=== PATIENT | female | born 1965 | race Caucasian/White ===

== ENCOUNTER 2016-05-01 12:29 | Observation (INO) | payer BC, OTHER ==
--- NOTE | 2016-05-01 13:06 | ERNOTE ---
Abdominal HPI - General Chief Complaint: Abdominal Pain Time Seen by Provider: 05/01/16 12:49 Source: patient Exam Limitations: no limitations - Immun/Allergies/Home Medications Immunizatons: IMMUNIZATION HX History of Influenza Vaccine Yes Allergies/Adverse Reactions: Allergies amoxicillin trihydrate [From Augmentin] Allergy (Verified 05/01/16 12:38) potassium clavulanate [From Augmentin] Allergy (Verified 05/01/16 12:38) Sulfa (Sulfonamide Antibiotics) Allergy (Verified 05/01/16 12:38) Home Medications: HOME MEDICATIONS Cetirizine HCl [Zyrtec] 10 mg PO DAILY 05/01/16 [Last Taken Unknown] Ethinyl Estradiol/Drospirenone [Drospirenone-Ee 3-0.02 mg Tab] 1 each PO DAILY 05/01/16 [Last Taken Unknown] Omeprazole [Prilosec] 20 mg PO DAILY 05/01/16 [Last Taken Unknown] - History of Present Illness Narrative: Patient has had right lower quadrant for about five days. The pain was mild at first but has increased in intensity over the last two day to where is hard for her to get comfortable and she has pain with cough, deep breath and bumps in the road, also started with a low grade temperature, denies any nausea and vomiting, had breakfast around 08:00 Date (Duration): 04/28/16 Timing: constant, getting worse Quality: moderate, aching Activities at Onset: none Modifying Factors - (Improves): Present: other - standing Modifying Factors - (Worsens): Present: breathing, coughing, movement, other - bending over Associated Symptoms: Absent: chest pain, diarrhea-gross blood, diarrhea-mucous, fever/chills, heartburn, nausea, vomiting, shortness of breath Prior Abdominal Problems: Present: none Prior Treatment: Absent: recently seen, currently on antibiotics Review of Systems - Review of Systems Constitutional: Present: fever, chills ENT: Absent: nose congestion, sore throat Respiratory: Absent: shortness of breath Cardiology: Absent: chest pain Gastrointestinal/Abdominal: Present: See HPI, abdominal pain. Absent: nausea Neurological: Absent: headache - Patient's Past Medical History Patient History - Medical: GERD Patient History - Cardiac/Respiratory: No pertinent hx Patient History - Cancer: No Hx of Cancer Patient History - Surgical Procedures: Other Patient History - Other: None - Family History Father Family History - Medical: Other - pancreatic cancer - Social History Living Situations: home Psych History: No pertinent hx Alcohol Use: none Drug Use: none - Immunizations History of Influenza Vaccine: Yes Physical Exam - Physical Exam General Appearance: Present: wd/wn, alert, no apparent distress Respiratory: Present: no respiratory distress, normal breath sounds, no accessory muscle use, lungs clear Cardiovascular/Chest: Present: regular rate, rhythm, no murmur Gastrointestinal/Abdominal: Present: normal bowel sounds, nondistended, soft, tenderness - right lower quadrant, guarding, McBurney sign, Obturator sign, Psoas sign Extremity Exam: Present: no edema Neurological Exam: Present: alert, oriented, normal mood/affect Skin Exam: Present: normal color, warm/dry ED Progress - Results and Orders Patient's Lab Results:: I have reviewed the patient's lab results. - Vital Signs Patient's Vital Signs:: I have reviewed the patient's vital signs. Vital Signs: Vital Signs 05/01/16 12:31 Temperature 38.2 C H Pulse Rate 101 H Respiratory 12 Rate Blood Pressure 141/92 O2 Sat by Pulse 98 Oximetry - CT/Ultrasound CT/Ultrasound Narrative: CT abdomen:pericecal inflammation and lymphnodes, most likely contained perforated appendicitis - Progress/Reassessment Chief Complaint: Abdominal Pain Progress Note-Subjective: 05/01/16 13:57 tolerating contrast, still does not want any pain meds discussed lab results 05/01/16 15:[address] Vázquez, will see patient in ER 05/01/16 15:50 discussed results with patient and , denies need for pain meds Departure - Departure Clinical Impression: Acute appendicitis Qualifiers: Acute appendicitis type: with localized peritonitis Qualified Code(s): K35.3 - Acute appendicitis with localized peritonitis Disposition: [facility] Condition: Good
[2016-05-01] MEDS ORDERED: DIATRIZOATE MEGLUMINE, SODIUM 30 ML BTL PO ONE (13:07)
--- OUTSIDE RECORDS SUMMARY | 2016-05-01 13:07 | XMS REPORT | Continuity of Care Document ---
:1965 Author Organization [facility] ([facility]) Address [address] [place] [address] Phone [phone] Care Team Providers Name Role Phone [phone], Need To Check Primary Care Provider Unavailable Source Comments This disclosure is being made pursuant to the Care Everywhere program, applicable federal and state laws, and may not contain all informaitonavailable regarding this patient.[facility] ([facility]) Active Allergies and Adverse Reactions Not on File Current Medications Not on file Active Problems Not on file Social History Tobacco Use Types Packs/Day Years Used Date Never Assessed Plan of Care Health Maintenance Due Date Last Done Comments Hepatitis B Vaccine (1 of 3 - Primary Series) 1965 Tdap Vaccine 1977 Lipid Disorder Screening 1984 MMR Vaccine 1984 Td Vaccine 1984 Cervical Cancer Screening 1996 Mammogram 2006 Influenza Vaccine: Seasonal (#1) 10/18/2015 Results from Last 3 Months Not on file
[2016-05-01] MEDS ORDERED: DIATRIZOATE MEGLUMINE, SODIUM 30 ML BTL ONE (13:09)
[2016-05-01 13:22] LABS: Mean Cell Volume 88.5 fl (78-100); Mean Corpuscular Hemoglobin 28.8 pg (27-31); Mean Corpuscular Hgb Conc 32.5 g/dl (32-36); Mean Platelet Volume 9.3 fl (6.0-9.5); Neutrophil # 8.9 K/mm3 (1.3-6.0); Neutrophil % 73.8 % (42-75.0); Platelet Count 243 K/mm3 (150-450); Red Blood Count 4.52 M/mm3 (4.2-5.4); Red Cell Distribution Width 12.8 % (11.5-14.0)
[2016-05-01 13:40] LABS: Albumin * 3.2 gm/dl (3.4-5.0); Anion Gap 16.7 mmol/L (6.8-13.8); BUN/Creatinine Ratio 11.8 (9.0-21.6); Bilirubin, Total 0.4 mg/dL (0.0-1.1); Ca. Corrected For Albumin 9.3 mg/dL (8.4-10.2); Carbon Dioxide 23.9 mmol/L (24-32.6); Potassium 3.6 mmol/L (3.4-4.6); Total Protein 7.2 gm/dL (6.2-8.2)
--- OUTSIDE RECORDS SUMMARY | 2016-05-01 16:56 | XMS REPORT | Continuity of Care Document ---
:1965 Author Organization [facility] ([facility]) Address [address] [place] [address] Phone [phone] Care Team Providers Name Role Phone [phone], Need To Check Primary Care Provider Unavailable Source Comments This disclosure is being made pursuant to the Care Everywhere program, applicable federal and state laws, and may not contain all informaitonavailable regarding this patient.[facility] ([facility]) Active Allergies and Adverse Reactions Not on [...]
--- NOTE | 2016-05-01 17:06 | HP ---
Chief Complaint - Chief Complaint Date of Service: 05/01/16 Time of Service: 16:56 Chief Complaint: abdominal pain History of Present Illness: started with RLQ pain last Sunday. Got a little better Sunday, but has persisted and she presented for evaluation. Tender RLQ with CT scan showing phlegmon RLQ suspicious for appendicitis with contained rupture. - Patient's Past Medical History Patient History - Medical: GERD Patient History - Cardiac/Respiratory: No pertinent hx Patient History - Cancer: No Hx of Cancer Patient History - Surgical Procedures: Other Patient History - Other: None - Family History Father Family History - Medical: Other - pancreatic cancer - Social History Living Situations: home Psych History: No pertinent hx Alcohol Use: none Drug Use: none - Immunizations History of Influenza Vaccine: Yes Review Of Systems (GEN) - Review of Systems Generalized/Overall Review: Present: Chills, Fever, Diaphoresis EENTM: Present: Other - headache Respiratory: Present: No Symptoms Reported Cardiac: Present: No Symptoms Reported Abdominal: Present: Abdominal Pain, Diarrhea Genitourinary: Present: Other - occasional stress incontinence Musculoskeletal: Present: Joint Pain - left knee Neurological: Present: Headache - "sinus [place]" currently but no neurologic symptoms Skin: Present: No Symptoms Reported, Other - malar flushing Immunizations: IMMUNIZATION HX History of Influenza Vaccine Yes Allergies/Adverse Reactions: Allergies Allergy/AdvReac Type Severity Reaction Status Date / Time amoxicillin trihydrate Allergy Verified 05/01/16 12:38 [From Augmentin] potassium clavulanate Allergy Verified 05/01/16 12:38 [From Augmentin] Sulfa (Sulfonamide Allergy Verified 05/01/16 12:38 Antibiotics) Home Medications: HOME MEDICATIONS Cetirizine HCl [Zyrtec] 10 mg PO DAILY 05/01/16 [Last Taken Unknown] Ethinyl Estradiol/Drospirenone [Drospirenone-Ee 3-0.02 mg Tab] 1 each PO DAILY 05/01/16 [Last Taken Unknown] Omeprazole [Prilosec] 20 mg PO DAILY 05/01/16 [Last Taken Unknown] Exam - Exam Vital Signs: Vital Signs - Last Taken Temp 37.7 C H 05/01/16 14:03 Pulse 107 H 05/01/16 16:37 Resp 16 05/01/16 16:37 BP 153/89 05/01/16 16:37 Pulse Ox 97 02/13/17 16:37 Constitutional: Present: Alert, Oriented x3, Cooperative, Mild distress ENT Exam: Present: normal ENT inspection, other - flushed Eye Exam: bilateral eye: normal inspection Neck: Present: full range of motion, supple, normal inspection Back Exam: Present: normal inspection Breasts: Present: Exam deferred Respiratory: Present: lungs clear, normal breath sounds Cardiovascular/Chest: Present: normal peripheral pulses, regular rate, rhythm, no murmur Peripheral Pulses: carotid (R): 4+, carotid (L): 4+, radial (R): 4+, radial (L) : 4+ Abdomen: Present: other - tender RLQ with rebound. Small umbilical hernia Extremity: Present: normal range of motion, normal inspection, no pedal edema, no calf tenderness Skin Exam: Present: normal color, other - malar flushing Neurologic: Present: pack puller II-XII nml as tested, normal cerebellar test, no motor/ sensory deficits Appearance: Present: appropriate appearance, appropriate insight, neat Eye contact: Present: cooperative, good eye contact, normal speech Thoughts: Present: normal thought pattern Diagnostic Studies: Abnormal Lab Results 05/01/16 05/01/16 Range/Units 13:15 13:15 WBC 12.0 H (4.0-10.5) K/mm3 Immature Gran # (Auto) 0.04 H (0.000-0.0310) K/mm3 Lymphocytes % 17.8 L (20-51) % Neutrophils # 8.9 H (1.3-6.0) K/mm3 Carbon Dioxide 23.9 L (24-32.6) mmol/L Anion Gap 16.7 H (6.8-13.8) mmol/L ALT 16 L (19-67) U/L Albumin 3.2 L (3.4-5.0) gm/dl Laboratory Results WBC 12.0 K/mm3 (4.0-10.5) H 05/01/16 13:15 RBC 4.52 M/mm3 (4.2-5.4) 05/01/16 13:15 Hgb 13.0 gm/dL (12.5-16.0) 05/01/16 13:15 Hct 40.0 % (37.0-47.0) 05/01/16 13:15 MCV 88.5 fl (78-100) 05/01/16 13:15 MCH 28.8 pg (27-31) 05/01/16 13:15 MCHC 32.5 g/dl (32-36) 05/01/16 13:15 RDW 12.8 % (11.5-14.0) 05/01/16 13:15 Plt Count 243 K/mm3 (150-450) 05/01/16 13:15 MPV 9.3 fl (6.0-9.5) 05/01/16 13:15 Immature Gran % (Auto) 0.30 % (0.001-0.429) 05/01/16 13:15 Immature Gran # (Auto) 0.04 K/mm3 (0.000-0.0310) H 05/01/16 13:15 Neutrophils % 73.8 % (42-75.0) 05/01/16 13:15 Lymphocytes % 17.8 % (20-51) L 05/01/16 13:15 Monocytes % 7.3 % (0.0-9) 05/01/16 13:15 Eosinophils % 0.5 % (0.0-3.0) 05/01/16 13:15 Basophils % 0.3 % (0.0-1.0) 05/01/16 13:15 Nucleated RBC % 0.0 k/mm3 (0-1) 05/01/16 13:15 Neutrophils # 8.9 K/mm3 (1.3-6.0) H 05/01/16 13:15 Lymphocytes # 2.1 k/mm3 (1.5-3.5) 05/01/16 13:15 Monocytes # 0.9 k/mm3 (0.0-1.0) 05/01/16 13:15 Eosinophils # 0.1 k/mm3 (0.0-0.7) 05/01/16 13:15 Absolute Basophils 0.0 k/mm3 (0.0-0.1) 05/01/16 13:15 Sodium 142 mmol/L (132-142) 05/01/16 13:15 Plasma Sodium 142 mmol/L (130-142) 05/01/16 13:15 Potassium 3.6 mmol/L (3.4-4.6) 05/01/16 13:15 Chloride 105 mmol/L (97-106) 05/01/16 13:15 Carbon Dioxide 23.9 mmol/L (24-32.6) L 05/01/16 13:15 Anion Gap 16.7 mmol/L (6.8-13.8) H 05/01/16 13:15 BUN 9 mg/dL (3-23) 05/01/16 13:15 Creatinine 0.76 mg/dL (0.4-1.4) 05/01/16 13:15 Est GFR (Non-Af Amer) 86 mL/min (60-130) 05/01/16 13:15 BUN/Creatinine Ratio 11.8 (9.0-21.6) 05/01/16 13:15 Random Glucose 97 mg/dL (70-110) 05/01/16 13:15 Calcium 9.0 mg/dL (7.9-10.9) 05/01/16 13:15 Calcium Adj for Albumin 9.3 mg/dL (8.4-10.2) 05/01/16 13:15 Total Bilirubin 0.4 mg/dL (0.0-1.1) 05/01/16 13:15 AST 10 U/L (0-48) 05/01/16 13:15 ALT 16 U/L (19-67) L 05/01/16 13:15 Alkaline Phosphatase 89 U/L (50-170) 05/01/16 13:15 Total Protein 7.2 gm/dL (6.2-8.2) 05/01/16 13:15 Albumin 3.2 gm/dl (3.4-5.0) L 05/01/16 13:15 Amylase 26 U/L (25-115) 05/01/16 13:15 Lipase 91 U/L (73-393) 05/01/16 13:15 Serum HCG, Qual Negative (NEGATIVE) 05/01/16 13:15 CT shows RLQ phlegmon Assessment/Plan - Assessment/Plan (1) Acute appendicitis Assessment: Discussed the need for appendectoomy (laparoscopic or open). The risks and possible complications were outlined as well as expected post-op course. Questions answered and informed consent for appendectomy obtained. Chlorhexidine wipes, SCD's, pre-op Mefoxin IV. Problem: Acute
[2016-05-01] MEDS ORDERED: RINGER'S SOLUTION,LACTATED 1,000 ML IV ONE ×2 (17:30→19:10)
[2016-05-01] MEDS ORDERED: CEFOXITIN SODIUM 2 GM in DEXTROSE 5 % IN WATER 100 ML IV ONE ×2 (17:30)
[2016-05-01] MEDS ORDERED: BUPIVACAINE HCL/EPINEPHRINE 50 ML VIAL IJ ONE (18:00)
[2016-05-01] MEDS ORDERED: MUPIROCIN 22 APPL TUBE TP ONE (19:17)
--- OUTSIDE RECORDS SUMMARY | 2016-05-01 19:54 | XMS REPORT | Continuity of Care Document ---
:1965 Author Organization [facility] ([facility]) Address [address] [place] [address] Phone [phone] Care Team Providers Name Role Phone [phone], Need To Check Primary Care Provider Unavailable Source Comments This disclosure is being made pursuant to the Care Everywhere program, applicable federal and state laws, and may not contain all informaitonavailable regarding this patient.[facility] ([facility]) Active Allergies and Adverse Reactions Not on [...]
[2016-05-01] MEDS ORDERED: ONDANSETRON HCL/PF 2 MG/ML VIAL IV PRN (20:15)
[2016-05-01] MEDS ORDERED: MORPHINE SULFATE 4 MG/ML SYRG IV PRN (20:15)
[2016-05-01] MEDS ORDERED: PANTOPRAZOLE SODIUM 40 MG in NORMAL SALINE 100 ML IV SCH (20:15)
[2016-05-01] MEDS ORDERED: RINGER'S SOLUTION,LACTATED 1,000 ML IV PRN (20:15)
--- NOTE | 2016-05-01 21:03 | OR ---
Operative Report - Dictated Report Narrative: OPERATIVE REPORT DATE OF OPERATION: 05/01/2016 PREOPERATIVE DIAGNOSIS: Acute appendicitis POSTOPERATIVE DIAGNOSIS: Acute appendicitis with localized rupture OPERATION: Laparoscopic appendectomy with incidental repair of umbilical hernia SURGEON: Jordon Vázquez MD ANESTHESIA: Gen. endotracheal Abdirashid Renee CRNA INDICATIONS FOR PROCEDURE: The patient is a 51-year-old female who initially developed abdominal pain on 04/26/2016. The pain got some better on 04/29/2016, however did continue so she presented to the emergency room for evaluation. She is found to have direct and rebound tenderness in the right lower quadrant with elevated white blood cell count and CT scan findings of a phlegmon in the right lower quadrant. FINDINGS: Appendicitis with localized rupture NARRATIVE OF PROCEDURE: The patient was identified in the holding area, and prior to the administration of anesthetic a multidisciplinary timeout was observed. The patient was placed supine, SCDs were applied, and 2 g of intravenous Mefoxin administered. Gen. endotracheal anesthetic was administered. The patient's abdomen was prepped with Betadine solution and a generous operating field isolated with 4 sterile towels. The remainder the patient was covered with a sterile disposable drape. A transverse infraumbilical skin incision was made. Dissection was carried along the umbilical stalk until the fascia of the linea alba was encountered. This was incised. There was properitoneal fat herniated into an umbilical hernia. This was dissected free from the undersurface of the umbilical skin and reduced into the properitoneal space. The peritoneum was then elevated and incised to allow entry into the abdomen under direct vision. A Forde cannula was placed and the abdomen insufflated with CO2. The laparoscopic camera was introduced and the abdomen briefly explored. The liver, gallbladder, small bowel, and small intestine visualized appeared normal. There were adhesions in the right lower quadrant indicating previous inflammation. The appendix was not immediately visible. Under direct vision 2 additional working ports were inserted through separate skin incisions, one suprapubically and one in the left lower quadrant. The keel of adhesions to the anterior abdominal wall on the right lower quadrant was liberated by blunt and electrocautery dissection. The apex of the cecum was grasped and retracted. The appendiceal base was identified, however the appendix itself was lateral to the cecum. The inflammatory adhesions of the cecum to the anterior abdominal wall were gradually developed bluntly until an abscess cavity was encountered. The pus from the cavity was completely suctioned. The cecum was then mobilized medially. The camera was then exchanged for a 5 mm camera which was placed through the suprapubic port for better visualization. The appendiceal base was further developed by blunt dissection so laparoscopic CYRUS stapling device could be placed across the appendiceal base and the portion of the mesoappendix which contained the appendiceal artery. The stapler was fired. The stump of the appendix appeared gas and liquid tight. The base of the mesoappendix appeared hemostatic. The appendix could then be developed by blunt dissection from the lateral abdominal wall and then liberated from the lateral aspect of the cecum. The last portions of the mesoappendix were divided with electrocautery. The appendix was placed in an Endobag and parked in the right lower quadrant. The right lower quadrant and pelvis were irrigated with saline and suctioned clean. The smaller working ports were then withdrawn under direct vision to ensure entry site hemostasis. The appendix was withdrawn in conjunction with the Forde cannula. The pneumoperitoneum was allowed to escape, and after receiving a correct sponge needle and instrument count attention was turned to closing the abdomen. The fascia and peritoneum were approximated with interrupted sutures of #1 Vicryl so as to also obliterate the umbilical hernia. Skin incisions were approximated with interrupted vertical mattress sutures of 4-0 nylon. The operative sites were washed and dried. Dressings of Bactroban ointment and large Band-Aids were applied to the small port sites. The umbilical incision was dressed with Bactroban ointment and 2 x 2 large Band- Aid and Medipore tape. The operative procedure was terminated at this point. The patient tolerated the anesthetic and procedure well without complication. There was no measurable blood loss. The appendix was submitted to pathology. 0.5% Marcaine with epinephrine was used for local anesthetic infiltration. The patient was transferred to the recovery room awake, extubated, and in stable condition. Reviewed and electronically signed
[2016-05-01] MEDS: oxyCODONE HCL/ACETAMINOPHEN 1 TAB TABLET PO PRN (21:05)
[2016-05-01] MEDS: CEFOXITIN SODIUM 2 GM in DEXTROSE 5 % IN WATER 100 ML IV SCH ×2 (23:51)
[2016-05-02] MEDS: oxyCODONE HCL/ACETAMINOPHEN 1 TAB TABLET PO PRN ×2 (02:30→06:58)
[2016-05-02] MEDS: CEFOXITIN SODIUM 2 GM in DEXTROSE 5 % IN WATER 100 ML IV SCH ×4 (04:46→12:38)
[2016-05-02] MEDS ORDERED: METOCLOPRAMIDE HCL 5 MG/ML VIAL IV PRN (13:19)
[2016-05-02 14:37] VITALS: BP 118/71
--- NOTE | 2016-05-02 18:17 | DS ---
(1) Acute appendicitis Problem: Acute Qualifiers: Acute appendicitis type: with localized peritonitis Qualified Code(s): K35.3 - Acute appendicitis with localized peritonitis Description of Stay: Underwent uneventful laparoscopic appendectomy for appendicitis with localized rupture and small abscess. Chlorhexidine wipes with pre-and post-operative IV Mefoxin. VTE prophylaxis with SCD's and early ambulation. VS remained normal. Presenting pain resolved. Incisional discomfort only. Had nausea with Percocet but controlled with Zofran and Reglan. Bowels moved. Dressings remained dry. Ambulated independently and desired discharge. Procedures Performed: see notes below - laparoscopic appendectomy Discharge Disposition: Home self care Disposition: Home self-care Condition: Good Discharge Activity: Activity as tolerated, No Lifting Discharge Diet: General/regular food Consultation Done:: none Problem Oriented Discharge Instructions to Patient/Family: Laparoscopic Appendectomy, Adult, Care After, [id number] Additional Patient Instructions (free text): patient to call office [phone] tomorrow to arrange f/u appointment Sunday Prescriptions (Any new or edited meds): HYDROmorphone HCL [Dilaudid] 2 mg PO QID PRN #10 tablet PRN Reason: Moderate Pain Complete Home Medications List: Complete Home Medication List: Cetirizine HCl [Zyrtec] 10 mg PO DAILY 05/01/16 Ethinyl Estradiol/Drospirenone [Drospirenone-Ee 3-0.02 mg Tab] 1 each PO DAILY 05/01/16 Omeprazole [Prilosec] 20 mg PO DAILY 05/01/16 HYDROmorphone HCL [Dilaudid] 2 mg PO QID PRN #10 tablet 05/02/16
== END 2016-05-02 19:13 | disposition home or self-care (01) ==
LOC: ER 12:29 → AMB 16:52 → MS 19:51
PROVIDERS: ADMIT Surgery; ATTEND Surgery
PROC: 0WQF4ZZ Repair Abdominal Wall, Percutaneous Endoscopic Approach (ICD-10-PCS; 2016-05-01)
PROC: 0DTJ4ZZ Resection of Appendix, Percutaneous Endoscopic Approach (ICD-10-PCS; principal; 2016-05-01 17:15)
DX: K35.3 Acute appendicitis with localized peritonitis (principal); K42.9 Umbilical hernia without obstruction or gangrene
CPT/HCPCS: 36415; 44970; 74177; 80053; 82150; 83690; 84703; 85025; 88304; 96375; 99284; G0378

== ENCOUNTER 2016-05-04 20:13 | Inpatient (IN) | payer BC, OTHER ==
[2016-05-04] MEDS ORDERED: ONDANSETRON HCL/PF 2 MG/ML VIAL IV ONE ×2 (21:06→21:46)
[2016-05-04] MEDS ORDERED: NORMAL SALINE 1,000 ML IV ONE (21:07)
--- NOTE | 2016-05-04 21:11 | ERNOTE ---
Medical Problem HPI - General Chief Complaint: Nausea/Vomiting Time Seen by Provider: 05/04/16 21:02 Source: patient Exam Limitations: no limitations - Immun/Allergies/Home Medications Immunizations: IMMUNIZATION HX Immunizations Up to Date Yes History of Influenza Vaccine Yes Hx Pneumococcal Vaccination No Allergies/Adverse Reactions: Allergies amoxicillin trihydrate [From Augmentin] Allergy (Verified 05/01/16 12:38) potassium clavulanate [From Augmentin] Allergy (Verified 05/01/16 12:38) Sulfa (Sulfonamide Antibiotics) Allergy (Verified 05/01/16 12:38) Home Medications: HOME MEDICATIONS Cetirizine HCl [Zyrtec] 10 mg PO DAILY 05/01/16 [Last Taken 04/30/16] Ethinyl Estradiol/Drospirenone [Drospirenone-Ee 3-0.02 mg Tab] 1 each PO DAILY 05/01/16 [Last Taken 04/30/16] Omeprazole [Prilosec] 20 mg PO DAILY 05/01/16 [Last Taken 04/30/16] HYDROmorphone HCL [Dilaudid] 2 mg PO QID PRN #10 tablet 05/02/16 [Last Taken Unknown] Ibuprofen [Motrin] 200 mg PO Q4H PRN 05/04/16 [Last Taken Unknown] - History of Present History Narrative: Pt had ruptured appendix 3 days ago. Appendix was removed laproscopically. She felt better yesterday but today she is having RUQ pain and tenderness with nausea Timing: getting worse Severity: moderate, severe Modifying Factors - (Worsens): Present: movement Review of Systems - Review of Systems Constitutional: Present: fatigue. Absent: fever, chills Gastrointestinal/Abdominal: Present: nausea, constipation. Absent: vomiting, diarrhea Musculoskeletal: Present: back pain - left All Other Systems: All systems neg except as marked - Patient's Past Medical History Patient History - Medical: GERD Patient History - Cardiac/Respiratory: No pertinent hx Patient History - Cancer: No Hx of Cancer Patient History - Surgical Procedures: Appendectomy - 2 days ago, Other Patient History - Other: None - Family History Father Family History - Medical: Other - Social History Living Situations: home Psych History: No pertinent hx Smoking Status: Never smoker Alcohol Use: none Drug Use: none - Immunizations Immunizations Up to Date: Yes Hx Pneumococcal Vaccination: No History of Influenza Vaccine: Yes Physical Exam - Physical Exam General Appearance: Present: wd/wn, alert, mild distress Ears, Nose, Throat: Present: normal ENT inspection, hearing grossly normal Neck: Present: normal inspection, nontender Respiratory: Present: no respiratory distress, normal breath sounds, lungs clear Cardiovascular/Chest: Present: regular rate, rhythm, no murmur, normal peripheral pulses Gastrointestinal/Abdominal: Present: normal bowel sounds, tenderness - LUQ to nearly epigastrium and half way down left side, rebound. Absent: guarding Back Exam: Present: no CVA tenderness Extremity Exam: Present: normal inspection, no edema, normal range of motion Neurological Exam: Present: alert, oriented, normal mood/affect, no motor/ sensory deficits Skin Exam: Present: normal color, warm/dry Lymphatic Exam: Present: no adenopathy ED Progress - Results and Orders Patient's Lab Results:: I have reviewed the patient's lab results. Results and Orders: Laboratory Tests 05/04/16 05/04/16 05/04/16 21:25 21:25 23:44 WBC 10.8 H Hgb 12.9 Hct 39.2 Plt Count 309 Neutrophils % 84.3 H Sodium 138 Potassium 3.0 L Chloride 101 Carbon Dioxide 27.1 Anion Gap 12.9 BUN 7 Creatinine 0.66 Est GFR (Non-Af Amer) 101 Random Glucose 149 H Calcium 9.2 Total Bilirubin 0.7 AST 8 ALT 8 L Alkaline Phosphatase 126 Total Protein 7.3 Albumin 2.5 L Amylase 19 L Lipase 72 L Urine Color [place] Urine Appearance Clear Urine pH 6.5 Ur Specific [place] 1.020 Urine Protein 30 H Urine Glucose (UA) Negative Urine Ketones 50 Urine Blood 25 H Urine Nitrate Negative Urine Bilirubin 1 H Urine Ictotest Negative Prot Sulfosalicylic Acd Negative Urine Urobilinogen 2.0 H Ur Leukocyte Esterase 25 H Urine RBC 0-5 Urine WBC Trace H Ur Epithelial Cells 0-5 Urine Bacteria 1+ H Urine Culture Comments Culture to follow - Vital Signs Patient's Vital Signs:: I have reviewed the patient's vital signs. Vital Signs: Vital Signs 05/04/16 20:15 Temperature 37.3 C Pulse Rate 108 H Respiratory 18 Rate Blood Pressure 142/89 O2 Sat by Pulse 94 Oximetry - X-Ray X-Ray #1 X-Ray: abdomen Interpretation: Interp. by ri X-ray Comments: Dilated loops of bowel and multiple a/f level on upright views strongly suggest severe illius or SBO. - Progress/Reassessment Chief Complaint: Nausea/Vomiting Progress:: Unchanged Progress Note-Subjective: 05/04/16 22:[address] Ring he agrees to admit to observation. He suggests reglan and zosyn. 05/04/16 22:40 Pt allergic to PCN ordered cipro and flagyl Departure - Departure Clinical Impression: Ileus, postoperative Disposition: [facility] Condition: Fair
[2016-05-04] MEDS ORDERED: ONDANSETRON HCL/PF 2 MG/ML VIAL ONE ×2 (21:14→21:44)
--- OUTSIDE RECORDS SUMMARY | 2016-05-04 21:21 | XMS REPORT | Continuity of Care Document ---
:1965 Author Organization [facility] ([facility]) Address [address] [place] [address] Phone [phone] Care Team Providers Name Role Phone [phone], Need To Check Primary Care Provider Unavailable Source Comments This disclosure is being made pursuant to the Care Everywhere program, applicable federal and state laws, and may not contain all informaitonavailable regarding this patient.[facility] ([facility]) Active Allergies and Adverse Reactions Not [...]
[2016-05-04 21:35] LABS: Hematocrit 39.2 % (37.0-47.0); Hemoglobin 12.9 gm/dL (12.5-16.0); Mean Cell Volume 86.5 fl (78-100); Mean Corpuscular Hemoglobin 28.5 pg (27-31); Mean Corpuscular Hgb Conc 32.9 g/dl (32-36); Mean Platelet Volume 8.7 fl (6.0-9.5); Neutrophil # 9.1 K/mm3 (1.3-6.0); Neutrophil % 84.3 % (42-75.0); Platelet Count 309 K/mm3 (150-450); Red Blood Count 4.53 M/mm3 (4.2-5.4); White Blood Count 10.8 K/mm3 (4.0-10.5)
[2016-05-04 21:47] LABS: Albumin * 2.5 gm/dl (3.4-5.0); Anion Gap 12.9 mmol/L (6.8-13.8); BUN/Creatinine Ratio 10.6 (9.0-21.6); Bilirubin, Total 0.7 mg/dL (0.0-1.1); Ca. Corrected For Albumin 10.1 mg/dL (8.4-10.2); Calcium * 9.2 mg/dL (7.9-10.9); Carbon Dioxide 27.1 mmol/L (24-32.6); Total Protein 7.3 gm/dL (6.2-8.2)
[2016-05-04] MEDS ORDERED: METOCLOPRAMIDE HCL 5 MG/ML VIAL IV ONE (22:32)
[2016-05-04] MEDS ORDERED: METOCLOPRAMIDE HCL 5 MG/ML VIAL ONE (22:42)
--- OUTSIDE RECORDS SUMMARY | 2016-05-04 23:07 | XMS REPORT | Continuity of Care Document ---
:1965 Author Organization [facility] ([facility]) Address [address] [place] [address] Phone [phone] Care Team Providers Name Role Phone [phone], Need To Check Primary Care Provider Unavailable Source Comments This disclosure is being made pursuant to the Care Everywhere program, applicable federal and state laws, and may not contain all informaitonavailable regarding this patient.[facility] ([facility]) Active Allergies and Adverse Reactions Not [...]
[2016-05-04] MEDS ORDERED: metroNIDAZOLE/SODIUM CHLORIDE 500 MG/100 ML BAG IV SCH (23:15)
[2016-05-04] MEDS ORDERED: CIPROFLOXACIN LACTATE/D5W 400 MG/200 ML BAG IV SCH (23:15)
[2016-05-04] MEDS ORDERED: MORPHINE SULFATE 2 MG/ML DISP.SYRIN IV ONE (23:53)
[2016-05-05 00:17] LABS: Urine Appearance Clear; Urine Color Orange
[2016-05-05 00:18] LABS: Urine Bilirubin 1 mg/dl (NEGATIVE); Urine Blood 25 /ul (NEGATIVE); Urine Ketone 50 mg/dL (NEGATIVE); Urine Nitrite Negative (NEGATIVE); Urine Protein 30 mg/dL (NEGATIVE); Urine pH 6.5 pH (5.0-7.0)
[2016-05-05 00:19] LABS: Urine Bacteria 1+; Urine RBC 0-5 /hpf (0-5); Urine WBC TRACE /hpf (0-5)
[2016-05-05] MEDS: PANTOPRAZOLE SODIUM 40 MG in NORMAL SALINE 100 ML IV SCH (00:54)
[2016-05-05] MEDS: POTASSIUM CHLORIDE 20 MEQ in 0.5 NORMAL SALINE 1,000 ML IV SCH ×3 (00:54→18:25)
[2016-05-05] MEDS: MORPHINE SULFATE 4 MG/ML SYRG IV PRN ×2 (01:45→03:18)
[2016-05-05] MEDS ORDERED: MORPHINE SULFATE 2 MG/ML DISP.SYRIN IV PRN (06:21)
--- NOTE | 2016-05-05 08:16 | HP ---
Chief Complaint - Chief Complaint Date of Service: 05/05/16 Time of Service: 08:10 - patient initially examined [place] as well History of Present Illness: She initially became ill 04/26/16 with abdominal pain. Had RLQ pain which then became better 04/29/16 and 03/30/16. Pain continued with N/V so presented to ER . Found to have direct RLQ tenderness, elevated WBC, and CT scan showed RLQ phlegmon suggesting advanced appendicitis. She underwent uneventful laparoscopic appendectomy on 05/01/16. The appendix was lateral to the cecum with established inflammation, and there was a small walled off abscess but no generalized peritonitis. She received pre and post-op Mefoxin. Her incisions were clean. Her presenting pain resolved and was replaced by incisional discomfort. She had some nausea, but was able to take liquids, ambulate and desired discharge. She was OK 05/03/16, but then 05/04/16 developed LUQ fullness and pain across mid abdomen with dry heaves and inability to take po. Called 7:30PM and was advised to be evaluated in ER. WBC minimally elevated, K+ 3.0, and xray shows ileus with gastric distention. No free air. There is still gastroview in the colon with increased colonic gas and gas through to the rectum. - Patient's Past Medical History Patient History - Medical: GERD Patient History - Cardiac/Respiratory: No pertinent hx Patient History - Cancer: No Hx of Cancer Patient History - Surgical Procedures: Appendectomy - 2 days ago, Other Patient History - Other: None - Family History Father Family History - Medical: Other - Social History Living Situations: home Psych History: No pertinent hx Smoking Status: Never smoker Have you smoked in the past 12 months: No Alcohol Use: none Drug Use: none - Immunizations Immunizations Up to Date: Yes Hx Pneumococcal Vaccination: No History of Influenza Vaccine: Yes Review Of Systems (GEN) - Review of Systems Generalized/Overall Review: Present: Fatigue. Absent: Chills, Fever EENTM: Present: No Symptoms Reported Respiratory: Present: No Symptoms Reported Cardiac: Present: No Symptoms Reported Abdominal: Present: Other - Pain in RLQ resolved after operation, but has pain/ fullness LUQ. Took liquids 05/03/16, but unable to eat 05/04/16 and had dry heaves. Passed some gas but no stool. Genitourinary: Present: No Symptoms Reported Musculoskeletal: Present: No Symptoms Reported Neurological: Present: No Symptoms Reported Skin: Present: No Symptoms Reported Immunizations: IMMUNIZATION HX Immunizations Up to Date Yes History of Influenza Vaccine Yes Hx Pneumococcal Vaccination No Allergies/Adverse Reactions: Allergies Allergy/AdvReac Type Severity Reaction Status Date / Time amoxicillin trihydrate Allergy Verified 05/05/16 03:45 [From Augmentin] potassium clavulanate Allergy Verified 05/05/16 03:45 [From Augmentin] Sulfa (Sulfonamide Allergy Verified 05/05/16 03:45 Antibiotics) Home Medications: HOME MEDICATIONS RX: Cetirizine HCl [Zyrtec] 10 mg PO DAILY 05/01/16 [Last Taken 04/30/16] RX: Ethinyl Estradiol/Drospirenone [Drospirenone-Ee 3-0.02 mg Tab] 1 each PO DAILY 05/01/16 [Last Taken 04/30/16] RX: Omeprazole [Prilosec] 20 mg PO DAILY 05/01/16 [Last Taken 04/30/16] HYDROmorphone HCL [Dilaudid] 2 mg PO QID PRN #10 tablet 05/02/16 [Last Taken Unknown] Ibuprofen [Motrin] 200 mg PO Q4H PRN 05/04/16 [Last Taken Unknown] Exam - Exam Vital Signs: Vital Signs - Last Taken Temp 36.3 C L 05/05/16 06:48 Pulse 97 05/05/16 06:48 Resp 20 05/05/16 06:48 BP 144/84 05/05/16 06:48 Pulse Ox 94 05/05/16 06:48 Constitutional: Present: Alert, Oriented x3, Cooperative, Mild distress, Other - appears more comfortable than last night ENT Exam: Present: normal ENT inspection, other - slightly flushed Eye Exam: bilateral eye: normal inspection Neck: Present: full range of motion, normal inspection Respiratory: Present: normal breath sounds, no respiratory distress Cardiovascular/Chest: Present: normal peripheral pulses, regular rate, rhythm Abdomen: Present: other - Tympanitic, but less so than last night. No percussion tenderness. Diffusely tender upper abdomen, but no guarding. Little if any RLQ tenderness. 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, no motor/sensory deficits Appearance: Present: appropriate appearance, appropriate insight, neat Eye contact: Present: cooperative, good eye contact, normal speech Thoughts: Present: normal thought pattern Diagnostic Studies: Abnormal Lab Results 05/04/16 Range/Units 23:44 Urine Protein 30 H (NEGATIVE) mg/dL Urine Blood 25 H (NEGATIVE) /ul Urine Bilirubin 1 H (NEGATIVE) mg/dl Urine Urobilinogen 2.0 H (NORMAL) EU/dl Ur Leukocyte Esterase 25 H (NEGATIVE) /ul Urine WBC Trace H (0-5) /hpf Urine Bacteria 1+ H (NONE) Laboratory Results WBC 10.8 K/mm3 (4.0-10.5) H 05/04/16 21:25 RBC 4.53 M/mm3 (4.2-5.4) 05/04/16 21:25 Hgb 12.9 gm/dL (12.5-16.0) 05/04/16 21:25 Hct 39.2 % (37.0-47.0) 05/04/16 21:25 MCV 86.5 fl (78-100) 05/04/16 21:25 MCH 28.5 pg (27-31) 05/04/16 21:25 MCHC 32.9 g/dl (32-36) 05/04/16 21:25 RDW 13.0 % (11.5-14.0) 05/04/16 21:25 Plt Count 309 K/mm3 (150-450) 05/04/16 21:25 MPV 8.7 fl (6.0-9.5) 05/04/16 21:25 Immature Gran % (Auto) 0.30 % (0.001-0.429) 05/04/16 21:25 Immature Gran # (Auto) 0.03 K/mm3 (0.000-0.0310) 05/04/16 21:25 Neutrophils % 84.3 % (42-75.0) H 05/04/16 21:25 Lymphocytes % 8.5 % (20-51) L 05/04/16 21:25 Monocytes % 6.4 % (0.0-9) 05/04/16 21:25 Eosinophils % 0.3 % (0.0-3.0) 05/04/16 21:25 Basophils % 0.2 % (0.0-1.0) 05/04/16 21:25 Nucleated RBC % 0.0 k/mm3 (0-1) 05/04/16 21:25 Neutrophils # 9.1 K/mm3 (1.3-6.0) H 05/04/16 21:25 Lymphocytes # 0.9 k/mm3 (1.5-3.5) L 05/04/16 21:25 Monocytes # 0.7 k/mm3 (0.0-1.0) 05/04/16 21:25 Eosinophils # 0.0 k/mm3 (0.0-0.7) 05/04/16:25 Absolute Basophils 0.0 k/mm3 (0.0-0.1) 05/04/16 21:25 Sodium 138 mmol/L (132-142) 05/04/16 21:25 Plasma Sodium 139 mmol/L (130-142) 05/04/16 21:25 Potassium 3.0 mmol/L (3.4-4.6) L 05/04/16 21:25 Chloride 101 mmol/L (97-106) 05/04/16 21:25 Carbon Dioxide 27.1 mmol/L (24-32.6) 05/04/16 21:25 Anion Gap 12.9 mmol/L (6.8-13.8) 05/04/16 21:25 BUN 7 mg/dL (3-23) 05/04/16 21:25 Creatinine 0.66 mg/dL (0.4-1.4) 05/04/16 21:25 Est GFR (Non-Af Amer) 101 mL/min (60-130) 05/04/16 21:25 BUN/Creatinine Ratio 10.6 (9.0-21.6) 05/04/16 21:25 Random Glucose 149 mg/dL (70-110) H 05/04/16 21:25 Calcium 9.2 mg/dL (7.9-10.9) 05/04/16 21:25 Calcium Adj for Albumin 10.1 mg/dL (8.4-10.2) 05/04/16 21:25 Total Bilirubin 0.7 mg/dL (0.0-1.1) 05/04/16 21:25 AST 8 U/L (0-48) 05/04/16 21:25 ALT 8 U/L (19-67) L 05/04/16 21:25 Alkaline Phosphatase 126 U/L (50-170) 05/04/16 21:25 Total Protein 7.3 gm/dL (6.2-8.2) 05/04/16 21:25 Albumin 2.5 gm/dl (3.4-5.0) L 05/04/16 21:25 Amylase 19 U/L (25-115) L 05/04/16 21:25 Lipase 72 U/L (73-393) L 05/04/16 21:25 Urine Color [place] 05/04/16 23:44 Urine Appearance Clear 05/04/16 23:44 Urine pH 6.5 pH (5.0-7.0) 05/04/16 23:44 Ur Specific [place] 1.020 SP.GR. (1.005-1.010) 05/04/16 23:44 Urine Protein 30 mg/dL (NEGATIVE) H 05/04/16 23:44 Urine Glucose (UA) Negative mg/dL (NEGATIVE) 05/04/16 23:44 Urine Ketones 50 mg/dL (NEGATIVE) 05/04/16 23:44 Urine Blood 25 /ul (NEGATIVE) H 05/04/16 23:44 Urine Nitrate Negative (NEGATIVE) 05/04/16 23:44 Urine Bilirubin 1 mg/dl (NEGATIVE) H 05/04/16 23:44 Urine Ictotest Negative (NEGATIVE) 05/04/16 23:44 Prot Sulfosalicylic Acd Negative mg/dL (0) 05/04/16 23:44 Urine Urobilinogen 2.0 EU/dl (NORMAL) H 05/04/16 23:44 Ur Leukocyte Esterase 25 /ul (NEGATIVE) H 05/04/16 23:44 Urine RBC 0-5 /hpf (0-5) 05/04/16 23:44 Urine WBC Trace /hpf (0-5) H 05/04/16 23:44 Ur Epithelial Cells 0-5 /hpf (0-5) 05/04/16 23:44 Urine Bacteria 1+ (NONE) H 05/04/16 23:44 Urine Culture Comments Culture to follow 05/04/16 23:44 Assessment/Plan - Assessment/Plan (1) Ileus, postoperative Assessment: Will continue NG suction, IVF's with K+, ice chips, ambulation. Will treat with IV Cipro/Flagyl Urine C&S sent IV protonix Problem: Acute (2) Hypokalemia Assessment: 20meq K+ added to IVF's She was placed in Observation status and will need to re-evaluate over the course of the day because she may require Acute status. VTE prophylaxis with ambulation Problem: Acute
[2016-05-05] MEDS ORDERED: PANTOPRAZOLE SODIUM 40 MG in NORMAL SALINE 100 ML IV SCH (09:00)
[2016-05-05] MEDS: metroNIDAZOLE/SODIUM CHLORIDE 500 MG/100 ML BAG IV SCH ×2 (09:24→18:21)
[2016-05-05] MEDS ORDERED: METOCLOPRAMIDE HCL 5 MG/ML VIAL IV PRN (11:20)
[2016-05-05] MEDS: CIPROFLOXACIN LACTATE/D5W 400 MG/200 ML BAG IV SCH ×2 (12:02→22:58)
--- NOTE | 2016-05-05 16:55 | PN ---
Dictated Progress Note - Date and Time Seen: Date: 05/05/16 Time: 16:15 - Progress Note Narrative: Vital Signs - Last Taken Temp 37.1 C 05/05/16 14:28 Pulse 96 05/05/16 14:28 Resp 20 05/05/16 14:28 BP 135/82 05/05/16 14:28 Pulse Ox 93 05/05/16 14:28 Abnormal/Pending Laboratory Last 24 HRS 05/04/16 23:44 Urine Protein 30 H Urine Blood 25 H Urine Bilirubin 1 H Urine Urobilinogen 2.0 H Ur Leukocyte Esterase 25 H Urine WBC Trace H Urine Bacteria 1+ H VS have remained normal. Much improved clinically with little discomfort, resolved LUQ distention, improved bowel sounds and small liquid BM. Will require at least one more midnight to trial clamp NG and trial liquids. Will re-check CBC and BMP in AM. Encourage ambulation.
[2016-05-06] MEDS: metroNIDAZOLE/SODIUM CHLORIDE 500 MG/100 ML BAG IV SCH ×2 (00:57→07:26)
[2016-05-06] MEDS: PANTOPRAZOLE SODIUM 40 MG in NORMAL SALINE 100 ML IV SCH (01:58)
[2016-05-06 06:20] LABS: Hematocrit 32.4 % (37.0-47.0); Hemoglobin 10.6 gm/dL (12.5-16.0); Mean Cell Volume 87.1 fl (78-100); Mean Corpuscular Hemoglobin 28.5 pg (27-31); Mean Corpuscular Hgb Conc 32.7 g/dl (32-36); Mean Platelet Volume 8.8 fl (6.0-9.5); Neutrophil # 3.7 K/mm3 (1.3-6.0); Neutrophil % 56.9 % (42-75.0); Platelet Count 293 K/mm3 (150-450); Red Blood Count 3.72 M/mm3 (4.2-5.4); White Blood Count 6.5 K/mm3 (4.0-10.5)
[2016-05-06 06:48] LABS: Anion Gap 12.8 mmol/L (6.8-13.8); BUN/Creatinine Ratio 9.2 (9.0-21.6); Calcium * 8.2 mg/dL (7.9-10.9); Carbon Dioxide 25.3 mmol/L (24-32.6); Estimated Creat Clear 100.7; Potassium 3.1 mmol/L (3.4-4.6)
[2016-05-06] MEDS ORDERED: POTASSIUM CHLORIDE 100 ML IV ONE (08:24)
--- NOTE | 2016-05-06 08:29 | PN ---
Dictated Progress Note - Date and Time Seen: Date: 05/06/16 Time: 08:26 - Progress Note Narrative: Vital Signs - Last Taken Temp 36.4 C L 05/06/16 06:50 Pulse 93 05/06/16 06:50 Resp 20 05/06/16 06:50 BP 150/86 05/06/16 06:50 Pulse Ox 95 05/06/16 06:50 Abnormal/Pending Laboratory Last 24 HRS 05/06/16 05/06/16 05:13 05:13 RBC 3.72 L Hgb 10.6 L Hct 32.4 L Potassium 3.1 L Culture 05/05/16 Unknown Urine Culture - Preliminary Urine,Voided Gram Negative Bacilli Tolerated NG clamp with min out overnight and 3 liquid BM's. K+ 3.1 Will check NG residual at noon and possibly D/C.K rider. Encourage OOB
[2016-05-06] MEDS: CIPROFLOXACIN LACTATE/D5W 400 MG/200 ML BAG IV SCH (11:00)
[2016-05-06 11:21] VITALS: BP 142/86
--- NOTE | 2016-05-06 13:18 | DS ---
(1) Ileus, postoperative Problem: Acute (2) Hypokalemia Problem: Acute Description of Stay: The patient was initially placed in observation status. She was treated with nasogastric suction and IV fluids with supplemental potassium. She was given empiric IV Cipro and Flagyl. VTE prophylaxis was accomplished with early ambulation. Although over the course of 05/05/2016 She improved clinically with less discomfort and distention and had passed gas, it was clear that another midnight would be necessary to accomplish full recovery. She was switched to acute status, the NG tube was clamped and she was given clear liquids which she tolerated. The NG tube was left at suction overnight and residual checked which was minimal. After liquid breakfast she had a solid bowel movement. The tube was removed, she tolerated a regular diet and desired discharge. Procedures Performed: none Discharge Disposition: Home self care Disposition: Home self-care Condition: Good Discharge Activity: Activity as tolerated, No Lifting Discharge Diet: General/regular food Referrals: Min Doyle DO [Primary Care Provider] - Problem Oriented Discharge Instructions to Patient/Family: Ileus Additional Patient Instructions (free text): Keep previously scheduled appointment with Dr. Vázquez Complete Home Medications List: Complete Home Medication List: Cetirizine HCl [Zyrtec] 10 mg PO DAILY 05/01/16 Ethinyl Estradiol/Drospirenone [Drospirenone-Ee 3-0.02 mg Tab] 1 each PO DAILY 05/01/16 Omeprazole [Prilosec] 20 mg PO DAILY 05/01/16 HYDROmorphone HCL [Dilaudid] 2 mg PO QID PRN #10 tablet 05/02/16 Ibuprofen [Motrin] 200 mg PO Q4H PRN 05/04/16
== END 2016-05-06 14:19 | disposition home or self-care (01) | DRG 395 ==
LOC: ER 20:13 → OBSVTOIN 23:00 → INTOOBSV 23:00 → MS 23:00
PROVIDERS: ADMIT Surgery; ATTEND Surgery
DX: K91.3 Postprocedural intestinal obstruction (principal); Y83.8 Other surgical procedures as the cause of abnormal reaction of the patient, or of later complication, without mention of misadventure at the time of the procedure; E87.6 Hypokalemia